=== PATIENT | female | born 1970 | race Caucasian/White ===

== ENCOUNTER 2023-03-06 15:16 | Day surgery (SDC) | payer BC, OTHER ==
[2023-03-06] MEDS ORDERED: Depo-Medrol 40 MG/ML IM ONE (15:17)
[2023-03-06] MEDS ORDERED: BUPIVACAINE 0.5% VIAL IJ ONE (15:17)
[2023-03-06] MEDS ORDERED: LIDOCAINE HCL 1% 50 MG/5 ML VL PF IJ ONE (15:17)
--- NOTE | 2023-03-06 23:30 | XRAY ---
Indication: Bilateral SI joint injection. Intraoperative fluoroscopy provided for 20 seconds. 4 digital spot image submitted for interpretation demonstrates posterior needle tips projecting over the left and right SI joints. Correlate with intraoperative findings/report.
--- NOTE | 2023-03-07 17:31 | XRAY ---
20 seconds of fluoroscopy was used in surgery for a bilateral sacroiliac joint injection.
== END 2023-03-06 17:12 | disposition home or self-care (01) ==
LOC: SDC-PAIN 15:16
PROVIDERS: ATTEND Psychiatry & Neurology Pain Medicine
DX: M46.1 Sacroiliitis, not elsewhere classified (principal); Z79.899 Other long term (current) drug therapy
CPT/HCPCS: 27096; 72202; 77002; J1030; J2001; G0260

== ENCOUNTER 2023-05-22 12:06 | Day surgery (SDC) | payer BC, OTHER ==
[2023-05-22] MEDS ORDERED: LIDOCAINE HCL 1% 50 MG/5 ML VL PF IJ ONE (12:07)
[2023-05-22] MEDS ORDERED: Depo-Medrol 40 MG/ML IM ONE (12:07)
[2023-05-22] MEDS ORDERED: Sodium Chloride 0.9(Preservative Free) 10 ML IJ ONE (12:07)
[2023-05-22] MEDS ORDERED: Decadron 4 MG INJ IV ONE (12:07)
[2023-05-22] MEDS ORDERED: DIPRIVAN 200 MG/20 ML IV ONE ×2 (14:07→14:16)
--- NOTE | 2023-05-22 15:12 | XRAY ---
Indication: Right L3-L5 transforaminal ZION. Intraoperative fluoroscopy provided for 19 seconds. 4 digital spot image submitted for interpretation demonstrates posterior needle tips projecting over the expected right L3 and L4 nerve roots. Small amount of contrast injected for needle tip placement. Correlate with intraoperative findings/report.
--- NOTE | 2023-05-22 15:12 | XRAY ---
Indication: Right piriformis injection. Intraoperative fluoroscopy provided for 9 seconds. Single digital spot image submitted for interpretation demonstrates posterior needle tip projecting over the expected right piriformis muscle. Small amount of contrast injected for needle tip placement. Correlate with intraoperative findings/report.
[2023-05-22] MEDS ORDERED: Lactated Ringers 1,000 ML IV ONE (16:50)
--- NOTE | 2023-05-22 20:14 | XRAY ---
9 seconds of fluoroscopy was used in surgery for a right piriformis injection.
--- NOTE | 2023-05-22 20:14 | XRAY ---
19 seconds of fluoroscopy was used in surgery for a right L3-L5 transforaminal ZION.
== END 2023-05-22 14:37 | disposition home or self-care (01) ==
LOC: SDC-PAIN 12:06
PROVIDERS: ATTEND Psychiatry & Neurology Pain Medicine
DX: M54.16 Radiculopathy, lumbar region (principal); M79.18 Myalgia, other site; Z79.899 Other long term (current) drug therapy
CPT/HCPCS: 20552; 64483; 72100; 72170; 77002; 77003; J1030; J1100; J2001; J2704; Q9966

== ENCOUNTER 2023-07-03 15:45 | Day surgery (SDC) | payer BC, OTHER ==
[2023-07-03] MEDS ORDERED: LIDOCAINE HCL 1% 50 MG/5 ML VL PF IJ ONE (15:46)
[2023-07-03] MEDS ORDERED: BUPIVACAINE 0.5% VIAL IJ ONE (15:46)
[2023-07-03] MEDS ORDERED: Depo-Medrol 40 MG/ML IM ONE (15:46)
--- NOTE | 2023-07-03 18:37 | XRAY ---
Indication: Bilateral SI joint injection. Intraoperative fluoroscopy provided for 19 seconds. 5 digital spot image submitted for interpretation demonstrates posterior needle tip projecting over the expected left and right SI joint. Correlate with intraoperative findings/report.
--- NOTE | 2023-07-04 08:42 | XRAY ---
19 seconds of fluoroscopy was used in surgery for a bilateral sacroiliac joint injection.
== END 2023-07-03 17:43 | disposition home or self-care (01) ==
LOC: SDC-PAIN 15:45
PROVIDERS: ATTEND Psychiatry & Neurology Pain Medicine
DX: M46.1 Sacroiliitis, not elsewhere classified (principal); Z79.899 Other long term (current) drug therapy
CPT/HCPCS: 27096; 72202; 77002; J1030; J2001; G0260

== ENCOUNTER 2025-03-03 15:30 | Day surgery (SDC) | payer BC ==
[2025-03-03] MEDS ORDERED: BUPIVACAINE 0.5% VIAL IJ ONE (15:31)
[2025-03-03] MEDS ORDERED: LIDOCAINE HCL 1% 50 MG/5 ML VL IJ ONE (15:31)
[2025-03-03] MEDS ORDERED: methylPREDNISolone acetate IM ONE (15:31)
--- NOTE | 2025-03-03 21:14 | XRAY ---
Indication: Right SI joint injection. Intraoperative fluoroscopy provided for 17 seconds. Single digital spot image submitted for interpretation demonstrates posterior needle tip projecting over right SI joint. Small amount of contrast injected for needle tip placement. Correlate with intraoperative findings/report.
--- NOTE | 2025-03-05 10:13 | XRAY ---
17 seconds of fluoroscopy was used in surgery for a right sacroiliac joint injection.
== END 2025-03-03 17:50 | disposition home or self-care (01) ==
LOC: SDC-PAIN 15:30
PROVIDERS: ATTEND Psychiatry & Neurology Pain Medicine
DX: M46.1 Sacroiliitis, not elsewhere classified (principal)
CPT/HCPCS: 27096; 72170; J1010; Q9966